=== PATIENT | female | born 1995 | race Caucasian/White ===

== ENCOUNTER 2025-08-17 08:25 | Emergency (ER) | payer BC, SELFPAY ==
[2025-08-17 08:30] VITALS: BP 141/78; PULSE 82; RESP 16; TEMP 36.4; O2SAT 100
--- NOTE | 2025-08-17 09:21 | ED_ITS ---
HPI - General Adult General Chief complaint: Unspecified Stated complaint: R FACIAL DROOP, CAN'T CLOSE EYE Time Seen by Provider: 08/17/25 09:09 History of Present Illness HPI narrative: This is a 29-year-old female no significant past medical history presents the ED for facial droop. Patient states that since this morning, she has noted tripping to her right face and she has not been able to close her right eye. Denies any known tick bites, rashes, fevers, chills. This is never happened before. She did get her chickenpox vaccination. Related Data Allergies Allergy/AdvReac Type Severity Reaction Status Date / Time No Known Allergies Allergy Verified 08/17/25 08:26 Review of Systems Review of Systems: Gen.: Denies fevers or chills Eyes: Denies eye pain or visual change ENT: Denies congestion Respiratory: Denies shortness of breath or cough CV: Denies chest pain or palpitations GI: Denies abdominal pain nausea, emesis or diarrhea denies burning, urgency, frequency or hematuria Musculoskeletal: Denies back pain or muscle pain Neuro: As per HPI Skin: Denies rash Except as documented, all other systems reviewed and negative Exam Narrative: APPEARANCE: No acute distress, nontoxic, resting in bed HEENT: Normocephalic, atraumatic, OMM. Right TM without vesicular lesions. No Sabillon sign RESPIRATORY: No respiratory distress CARDIOVASCULAR: Appears well perfused ABDOMINAL: Nondistended MUSCULOSKELETAl: Moves all extremities. No obvious deformities NEURO: Awake and alert. Cranial nerve 7 palsy on the right. SKIN:: Warm, dry. No rashes lesions or abrasions PSYCHIATRIC: Normal affect/mood, Course Vital Signs Vital signs: Vital Signs Temperature 97.6 F 08/17/25 08:30 Pulse Rate 82 08/17/25 08:30 Respiratory Rate 16 08/17/25 08:30 Blood Pressure 141/78 H 08/17/25 08:30 Pulse Oximetry 100 08/17/25 08:30 Oxygen Delivery Room Air 08/17/25 08:30 Temperature 97.6 F 08/17/25 08:30 Pulse Rate 82 08/17/25 08:30 Respiratory Rate 16 08/17/25 08:30 Blood Pressure 141/78 H 08/17/25 08:30 Pulse Oximetry 100 08/17/25 08:30 Oxygen Delivery Room Air 08/17/25 08:30 Medical Decision Making [facility] Narrative Medical decision making narrative: 29-year-old female Presenting for right facial droop. On initial evaluation patient was in no acute distress afebrile, hemodynamic stable. Differentials include but are not limited to: Escobedo's palsy, herpes zoster, Lyme disease CVA Notable exam findings: Right cranial nerve 7 palsy Patient has no evidence of herpes zoster, no known tick exposures and is not endemic here so no need to cover for Lyme disease. 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 She will be given a prescription for prednisone. She was educated on eye cover use and eye drops and eye appointment. She was advised follow-up with her PCP in the next week for re-evaluation. Patient was agreeable to this plan. Given strict return precautions. Vital Signs Vital Signs: Vital Signs Temperature 97.6 F 08/17/25 08:30 Pulse Rate 82 08/17/25 08:30 Respiratory Rate 16 08/17/25 08:30 Blood Pressure 141/78 H 08/17/25 08:30 Pulse Oximetry 100 08/17/25 08:30 Oxygen Delivery Room Air 08/17/25 08:30 Temperature 97.6 F 08/17/25 08:30 Pulse Rate 82 08/17/25 08:30 Respiratory Rate 16 08/17/25 08:30 Blood Pressure 141/78 H 08/17/25 08:30 Pulse Oximetry 100 08/17/25 08:30 Oxygen Delivery Room Air 08/17/25 08:30 Discharge Plan Discharge Clinical Impression: Escobedo's palsy Patient Disposition: Home Condition: Stable Instructions: Antibiotic Form, Escobedo Palsy (ED) Additional Instructions: He will likely a Escobedo's palsy. Take prednisone as prescribed. Use a eye patch at night so you do not scratch her eye. Use saline eye drops every hour during the day and use an eye ointment at night. Follow-up with your PCP in the next week for re-evaluation. Return to the ED for any new or worsening symptoms. Patient Language: Montserratian Prescriptions: New prednisone 20 mg tablet 60 mg PO DAILY 7 Days Qty: 21 0RF Follow-up/Referrals: Harms,Gregg Ortiz M.D. [Primary Care Provider]
--- OUTSIDE RECORDS SUMMARY | 2025-08-17 09:30 | XMS_ITS | Clinical Summary ---
Author Organization [address] Address [address] [place] [id number] Care Team Providers Care Purchasing Officer Name Role Phone Gregg Ventura MD Primary Care Provider [phone] Allergies Active Allergy Reactions Criticality Noted Date Comments Venom-Honey Bee Swelling Medium Medications sertraline (ZOLOFT) 25 mg tabletIndications: Generalized anxiety disorder Take 1 tablet (25 mg total) by mouth daily 90 tablet 1 03/14/20 23 Active Additional Information Patient not taking.Reported on 07/18/2025 ofloxacin (OCUFLOX) 0.3 % ophthalmic solutionIndication s:Acute conjunctivitis of both eyes, unspecified acute conjunctivitis type Administer 1 drop into both eyes 4 (four) times a day 5 mL 12/19/19 24 Active Additional Information Patient not taking.Reported on 07/18/2025 albuterol HFA (PROVENTIL HFA,VENTOLIN HFA,PROAIR HFA) 90 mcg/actuation inhalerIndications :Lower respiratory infection (e.g., bronchitis, pneumonia, pneumonitis, pulmonitis) Inhale 2 puffs every 4 (four) hours as needed for wheezing 1 each 07/18/20 25 026 Active benzonatate (TESSALON) 100 mg capsuleIndications :Cough Take 1 capsule (100 mg total) by mouth 3 (three) times a day as needed for cough for up to 7 days 21 capsule 07/18/20 25 025 amoxicillin (AMOXIL) 500 mg tablet/capsuleIndi cations:Lower respiratory infection (e.g., bronchitis, pneumonia, pneumonitis, pulmonitis) Take 2 tablet/capsule (1,000 mg total) by mouth 3 (three) times a day for 5 days 30 tablet/capsu le 07/18/20 25 025 predniSONE (DELTASONE) 20 mg tabletIndications: Lower respiratory infection (e.g., bronchitis, pneumonia, pneumonitis, pulmonitis) Take 2 tablets (40 mg) by mouth daily with breakfast for 5 days 10 tablet 07/18/20 25 025 Active Problems Problem Noted Date Diagnosed Date Dyslexia 05/07/2024 Assessment & Plan (05/07/2024 8:20 AM CDT): Letter provided for accommodations for testing. Hopeful she will be successful with the accommodations. Let us know if she needs any further assistance. Generalized anxiety disorder 03/14/2023 Assessment & Plan (03/14/2023 3:56 PM CDT): Reviewed pharmacologic treatment options for management of anxiety including SSRI/SNRIs, and non-benzodiazepine anxiolytics. Will start prescription sertraline 25 mg daily. Reviewed medication and adverse effects. Encouraged patient to engage with counseling. Given names and numbers of local counseling services. Recommend healthy eating and regular exercise. Seek immediate medical attention if experiencing SI/HI. Will continue to monitor. Follow-up in 3 months. Class 2 obesity due to exces s calories without serious comorbidity with body mass index (BMI) of 39.0 to 39.9 in adult 03/14/2023 Assessment & Plan (03/14/2023 3:57 PM CDT): Discussed healthy diet and importance of regular physical activity. Nausea 09/13/2021 Assessment & Plan (09/15/2021 9:20 AM BATT PACKER): Continue with bland diet. Avoid grease, spice, red sauces, citric things and seedy things. Monitor diet for foods that give her problems. Start with 6 small meals and increase back to 3 meals as tolerated. All questions answered . Patient states understands. Assessment & Plan (09/13/2021 5:12 PM BATT PACKER): Keep to clear liquid diet if nauseated. Sip on flat white soda, tea, No milk, orange juice. Dramamine 25 mg po as directed on package. If vomiting gets worse, and feels weaker and dehydrated to go to ER. Abdominal pain 09/13/2021 Assessment & Plan (09/15/2021 9:22 AM BATT PACKER): Ultra sound of abdomen and pelvis. Urine dip done today. Negative. Continue with diet as discussed. Monitor pain, see what it makes it come back. Presently grades pain a 2-3 on 1- 10 scale. Pain is not continuous as previously. Assessment & Plan (09/13/2021 5:14 PM BATT PACKER): Monitor abdominal pain, if gets worse, go to ER. Lab done today. CBC, CMP, complete UA Keep on clear diet, Heating pad on low 10-15 minutes every 2 hours. Can also soak in hot tub as tolerated. Vomiting and diarrhea 09/13/2021 Assessment & Plan (09/15/2021 9:58 AM BATT PACKER): Continue to monitor stooling and vomiting. Vomiting at this time is resolved. Diarrhea is now forming back into normal stool. Has been Assessment & Plan (09/13/2021 5:16 PM BATT PACKER): Stay on clear to bland diet. For diarrhea, apple sauce, banana, hot tea or jello. No milk or milk products. Dehydration, moderate 09/13/2021 Assessment & Plan (09/15/2021 6:41 PM BATT PACKER): Continue with fluids. Suggested tea, flat white soda, apple juice, NO milk. Monitor color of urine, keep at a lemonade color. UA repeated today, NEG> Assessment & Plan (09/13/2021 5:20 PM BATT PACKER): Drink sips of fluids as suggested one teaspoon at a time, slowly Adult Ped iLyte as tolerated. Power Aid, Gatorade. If severe abdominal cramps, go to ER. Multiple closed fractures of left foot, with routine healing, subsequent encounter 05/20/2019 Closed fracture of left ankle 04/01/2019 Overview (04/01/2019): Added automatically from request for surgery [id number] Resolved Problems Problem Noted Date Diagnosed Date Resolved Date Encounter to establish care 03/14/2023 05/07/2024 Assessment & Plan (03/14/2023 3:57 PM CDT): Patient; reviewed recommended preventive screenings and vaccinations. Reviewed medical, surgical, family and social history. Encourage annual flu vaccine. Wear sunscreen/protective clothing when outdoors. -encouraged patient to reestablish with health care coordinator, reviewed Pap screening guidelines of Q 3 years. Pharyngitis 01/25/2018 03/14/2023 Assessment & Plan (01/25/2018 5:53 PM CDT): Complete antibiotic as prescribed Tylenol or Motrin for fever/pain Gargle with warm salt water (1tsp salt/1 cup water) Suck on ice chips, popsicles, cough drops, or throat lozenges You may return to work, daycare, or school 24 hours after starting antibiotics and you are fever free Do not share food, drinks, or utensils Replace your toothbrush within 24 hours after starting antibiotics and again after 4-5 days. I recommend washing your pillow cases and sheets after 24 hours Follow up with your PCP if you are not getting better Encounters Date Type Department Care Team Description 07/18/2025 2:30 PM CDT Office Visit [facility] [place] [address] [place] [address] Yesica Fernández, LADI Lower respiratory infection (e.g., bronchitis, pneumonia, pneumonitis, pulmonitis) (Primary Dx) from Last 3 Months Immunizations Immunization Administration Dates Next Due DTaP 03/13/2002 DTaP, Unspecified 03/13/2002, 8,07/01/1997,05/05,02/26/1997 HPV9 01/16/2018,11/15/2016,05/28/2015 Hep A, Adult 01/16/2018,11/15/2016 Hep B, Unspecified 10/07/1997,01/22/1997, 997 HiB 04/08/1998, 7,05/05/1997,02/26 IPV 03/13/2002,03/13/2002 Influenza, Quadrivalent, Spl it, Intramuscular 07/25/2019 Influenza, Quadrivalent, Spl it, Preservative Free, Intramuscular 07/04/2022,07/31/2020,07/25/2019 Influenza, Trivalent, IM (MDV) 09/05/2014,2012,09/16/2012 Influenza, Trivalent, Preser vative Free, Intramuscular 10/11/2015 Influenza, Unspecified 05/07/2024(Deferr ed: Patient Refused),06/02/2023(Deferred: Patient Refused) MMR 03/13/2002,03/13/2002,04/08/1998 Meningococcal Conjugate (Menveo) 05/28/2015 Meningococcal MCV4P (Menactra) 04/30/2011 OPV 07/08/1998,05/05/1997,02/26/1997 PPD TEST 02/25/2020,02/17/2019 Pfizer SARS-CoV-2 Monovalent Vaccination (12+ Yrs) PURPLE 05/28/2021,05/07/2021 Tdap 07/01/2022, 9(Deferred: - Already received in January/2019),04/30/2011 Varicella 01/03/2007,09/18/2001 Surgical History Surgery Date Site/Laterality Comments FOOT SURGERY Left Medical History Medical History Date Comments Anxiety Family History Medical History Relation Name Comments Cancer Father Hypertension Other 1 Family history of Hypertension; Diabetes Other 2 Family history of Diabetes mellitus; Relation Name Status Comments Father Other 1 Other 2 Social History Tobacco Use Types Packs/Day Years Used Date Smoking Tobacco: Never Smokeless Tobacco: Never Tobacco Cessation:Counseling Given: Not Answered PHQ-2 Answer Date Recorded PHQ-2 Total Score (If total score is 3 or more points, staff should administer the PHQ-9) 0 05/07/2024 Comments No Sex and Gender Information Value Date Recorded Sex Assigned at Not on file Legal Sex Female 10:22 AM BATT PACKER Gender Identity Not on file Sexual Orientation Not on file Occupation Industry Job Start Date Job End Date [employer] Not on file Not on file Not on file Last Filed Vital Signs Vital Sign Reading Time Taken Comments Blood Pressure 122/66 07/18/2025 2:29 PM CDT Pulse 75 07/18/2025 2:29 PM CDT Temperature 36.2 C (97.2 F) 07/18/2025 2:29 PM CDT Respiratory Rate 18 07/18/2025 2:29 PM CDT Oxygen Saturation 97% 07/18/2025 2:29 PM CDT Inhaled Oxygen Concentration - - Weight 102.1 kg (225 lb) 07/18/2025 2:29 PM CDT Height 172.7 cm (5' 8) 07/18/2025 2:29 PM CDT Body Mass Index 34.21 07/18/2025 2:29 PM CDT Plan of Treatment Health Maintenance Due Date Last Done Comments Cervical Cancer Screening 1996 Regular Well Visit/Exam 18-64 2014 Depression Screening 05/07/2025 05/07/2024, 03/14/2023, 09/13/2021, Additional history exists Covid-19 Vaccine ( season) 2025 05/28/2021, 05/07/2021 Influenza Vaccine (#1) 2025 , 07/04/2022, 07/16/2021, Additional history exists DTaP/Tdap/Td Vaccine (8 - Td or Tdap) 07/01/2032 07/01/2022, 04/30/2011, 03/13/2002, Additional history exists Hepatitis B Screening Completed 10/07/1997 , 01/22/1997, 1996 Varicella Vaccines Completed 01/03/2007, 09/18/2001 Hepatitis C Screening Completed 05/02/2014 HPV Vaccines Completed 01/16/2018, 11/02, 05/28/2015 Pneumococcal vaccine <65 Aged Out No longer eligible based on patient's age to complete this topic Medical Devices Implanted Type Area Coffee Supervisor Device Identifier Shelf Expiration Date Model / Serial / Lot Synthes 204.836 3.5mm 6mm 36mm 2.5mm Self Tap Small Hexagonal Socket Low Profile - [id number] Implanted:Qty: 1 on 04/01/2019 by Dilip Golden MD at [facility] Left: Ankle Synthes I 04/01/2020 204.836 / / Synthes 241.33 12mm [id number] .[id number] 3 Hole Collar 1/3 Tubular Plate Bone Stainless - [id number] Implanted:Qty: 1 on 04/01/2019 by Dilip Golden MD at [facility] Left: Ankle Synthes I 04/01/2020 241.33 / / Synthes 204.828 3.5mm 6mm 28mm 2.5mm Self Tap Small Hexagonal Socket Low Profile - [id number] Implanted:Qty: 1 on 04/01/2019 by Dilip Golden MD at [facility] Left: Ankle Synthes I 04/01/2020 204.828 / / Synthes 204.844 3.5mm 6mm 44mm 2.5mm Self Tap Small Hexagonal Socket Low Profile - [id number] Implanted:Qty: 1 on 04/01/2019 by Dilip Golden MD at [facility] Left: Ankle Synthes I 04/01/2020 204.844 / / Synthes 02.211.022 2.7mm 22mm Self Tap Lock Variable Angle Stardrive T8 Screw Bone - [id number] Implanted:Qty: 2 on 04/11/2019 by Dilip Golden MD at [facility] Left: Foot Synthes I 02.211.022 / / Synthes 02.211.026 2.7mm 26mm Self Tap Lock Variable Angle Stardrive T8 Screw Bone - [id number] Implanted:Qty: 2 on 04/11/2019 by Dilip Golden MD at [facility] Left: Foot Synthes I 02.211.026 / / [employer] [id number] Gordon 1.6mm 22.9cm 2 End Trocar Point Style 5 Wire Fixation - [id number] Implanted:Qty: 3 on 04/11/2019 by Dilip Golden MD at [facility] Left: Foot [employer] [id number] / / Synthes 07.704.105s Norian Drillable Fast Set Putty Filler 5cc Bone Void Calcium - [id number] Implanted:Qty: 1 on 04/11/2019 by Dilip Golden MD at [facility] Left: Foot Synthes I 07.704.105S / / Synthes 2.7 Left Cuboid Plate Implanted:Qty: 1 on 04/11/2019 by Dilip Golden MD at [facility] Left: Foot Synthes I ..221S / / Synthes 202.884 2.7mm 5mm 24mm 2.5mm Self Tap Stardrive Cortical T8 Screw Bone - [id number] Implanted:Qty: 1 on 04/11/2019 by Dilip Golden MD at [facility] Left: Foot Synthes I 202.884 / / Synthes 02.211.024 2.7mm 24mm Self Tap Lock Variable Angle Stardrive T8 Screw Bone - [id number] Implanted:Qty: 4 on 04/11/2019 by Dilip Golden MD at [facility] Left: Foot Synthes I .024 / / Explanted Type Area Coffee Supervisor Device Identifier Shelf Expiration Date Model / Serial / Lot [employer] [id number] Gordon 1.6mm 22.9cm 2 End Trocar Point Style 5 Wire Fixation - [id number] Explanted:Qty: 6 on 04/11/2019 by Dilip Golden MD at [facility] Left: Foot [employer] [id number] / / Procedures Procedure Name Priority Date/Time Associated Diagnosis Comments POC INFLUENZA A/B, COVID-19 ANTIGEN Routine 07/18/2025 3:27 PM CDT Lower respiratory infection (e.g., bronchitis, pneumonia, pneumonitis, pulmonitis) POCT RAPID STREP Routine 07/18/2025 3:26 PM CDT Lower respiratory infection (e.g., bronchitis, pneumonia, pneumonitis, pulmonitis) SERUM HEPATITIS PANEL Routine 05/02/2014 8:59 PM CDT from Last 3 Months or Most Recently Relevant to Health Maintenance Results * POC Influenza A/B, COVID-19 antigen (07/18/2025 3:27 PM CDT) Influenza A Ag, POC Negative Negative [facility] Influenza B Ag, POC Negative Negative [facility] COVID-19 Ag POC Presumptive Negative Presumptive Negative, Invalid [facility] Nasal 07/18/2025 3:27 PM CDT Yesica Fernández NP POINT OF CARE TEST ORDERABLES Final Result Performing Organization Address City/[facility]/ZIP Co de Phone Number [facility] [address] [place] [address]RUST * POCT rapid strep A (07/18/2025 3:26 PM CDT) Rapid Strep A, POC Negative Negative Swab 07/18/2025 3:26 PM CDT Yesica Fernández NP POINT OF CARE TEST ORDERABLES Final Result * Serum Hepatitis panel (05/02/2014 8:59 PM CDT) HBV surface ag NONREAC NONREAC HISTO RICAL RESULTS HAV ab, IgM NONREAC NONREAC HISTORIC AL RESULTS Comment: HEP A IGM Early acute infection (within the prior 2 weeks) is not ruled out by this test. HBV core ab, IgM NONREAC NONREAC HISTORICAL RESULTS HCV ab NONREAC NONREAC HISTORICAL RESULTS Comment: HEP C EARLY ACUTE INFECTION (OCCURING DURING THE PRIOR 8-9 WEEKS) IS NOT RULED OUT BY THIS TEST. Serum 05/02/2014 8:59 PM CDT us Caroline Floyd MD LAB BLOOD ORDERABLES Final Resu lt HISTORICAL RESULTS from Last 3 Months or Most Recently Relevant to Health Maintenance Insurance [employer] H[employer] Advance Directives For more information, please contact: [phone] * Full Code (Latest Code Status on File) Date Activated Date Inactivated Comments 04/01/2019 6:26 PM 04/02/2019 8:31 PM Care Teams Purchasing Officer Relationship Specialty Start Date End Date Gregg Ventura MD [address] [place] [address] PCP - General Family Medicine 03/14/23
== END 2025-08-17 09:53 | disposition home or self-care (01) ==
PROVIDERS: Emergency Provider Student in an Organized Health Care Education/Training Program; PCP Family Medicine
DX: G51.0 Bell's palsy (principal)
CPT/HCPCS: 99283